=== PATIENT | female | born 2000 | race Hispanic/Latino ===

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

== ENCOUNTER 2022-12-11 11:43 | Emergency (ER) | payer MEDICAID, OTHER ==
[~2022-12-11] VITALS: Ht 160 cm; Wt 87.5 kg
[2022-12-11 13:40] LABS: HCG,QUALITATIVE URINE NEGATIVE (NEGATIVE)
[2022-12-11 13:58] LABS: APPEARANCE,URINE CLOUDY (CLEAR); BILIRUBIN,URINE NEGATIVE (NEGATIVE); COLOR,URINE YELLOW (YELLOW); GLUCOSE, URINE (UA) NEGATIVE (NEGATIVE); KETONES,URINE NEGATIVE (NEGATIVE); LEUKOCYTE ESTERASE ,URINE 250 Leu/uL (NEGATIVE); NITRATE,URINE NEGATIVE (NEGATIVE); OCCULT BLOOD,URINE LARGE (NEGATIVE); PROTEIN,URINE 20 mg/dL (NEGATIVE); UROBILINOGEN,URINE 0.2 mg/dL (0.2-1.0)
[2022-12-11] MEDS ORDERED: PREDNISONE 20 MG TABLET PO ONE (14:00)
[2022-12-11] MEDS ORDERED: FAMOTIDINE 20MG TAB PO ONE (14:00)
[2022-12-11 14:07] LABS: BACTERIA,URINE RARE /HPF (None Seen); MUCUS,URINE RARE LPF (None Seen); RBC,URINE TNTC /HPF (0-1); SQUAMOUS EPITHELIAL CELL,UR MOD /HPF (0-2)
[2022-12-11] MEDS ORDERED: CEFD300C3 PO (14:28)
[2022-12-11] MEDS ORDERED: PRED20TA3 PO (14:28)
[2022-12-11 14:55] VITALS: BP 122/60
== END 2022-12-11 15:01 | disposition home or self-care (01) ==
LOC: EDH 11:43
DX: J06.9 Acute upper respiratory infection, unspecified (principal); B09 Unspecified viral infection characterized by skin and mucous membrane lesions; N39.0 Urinary tract infection, site not specified; Z20.822 Contact with and (suspected) exposure to COVID-19; Z91.010 Allergy to peanuts
CPT/HCPCS: 99284; 71045; 87635; 87088; 87880; 87804 ×2; 81001; 81025; C9803